=== PATIENT | male | born 1965 | race Caucasian/White ===

== ENCOUNTER → 2017-10-12 | Outpatient (CLI) | payer OTHER ==
[~2017-10-12] MED LIST: DOXY100T35 PO; MULT-506 PO; OMEG10007 PO; SIMV-151 PO
--- NOTE | 2017-10-12 12:41 | DIAGNOSTIC IMAGING REPORT ---
ABDOMEN LIMITED (US) HISTORY: Pain GROIN PAIN. COMPARISON: None. FINDINGS: Ultrasonic evaluation of the inguinal regions bilaterally was performed pre and post Valsalva. There are findings of fat-containing reducible inguinal hernias bilaterally. No evidence of bowel containment or incarceration. IMPRESSION: Bilateral reducible fat-containing inguinal hernias. The above report was generated using voice recognition software. It may contain grammatical, syntax or spelling errors. Electronically signed by: Hal Mark M.D. 10/12/2017 12:40 PM Dictated Date/Time: 10/12/2017 12:39 PM
== END | disposition home or self-care (01) ==
LOC: C.ULTRBC 12:15
PROVIDERS: ATTEND Family Medicine
DX: K40.20 Bilateral inguinal hernia, without obstruction or gangrene, not specified as recurrent (principal)